=== PATIENT | female | born 1940 | race Caucasian/White ===

== ENCOUNTER 2020-11-24 09:38 | Emergency (ER) | payer MEDICARE ==
[~2020-11-24] VITALS: Ht 172.7 cm; Wt 72.6 kg
[~2020-11-24 09:38] MED LIST: ACYCLOVIR200 MG PO; ALIGN; ALIGN10.5 MG PO; ALIGN4 MG PO; AMBIEN10 MG PO; ASPIR 8181 MG PO; ATIVAN1 MG PO; ATORVASTATIN CA10 MG PO; BENZONATATE200 MG PO; CLOTRIMAZOLE-BE15 GM TOP; CRESTOR10 MG PO; DOCUSATE SENNA PO; FLOMAX0.4 MG PO; GARLIC PO; HYDROCODON-ACE1 EA11 PO; IPRATROPIUM BRO15 ML; LEXAPRO5 MG PO; LIPITOR10 MG PO; METAMUCIL; METAMUCIL660 GM PO; METOPROLOL SUCC25 MG PO; MULTI-VITAMIN1 EACH PO; NEURONTIN300 MG PO; NEXIUM40 MG PO; PANTOPRAZOLE SO40 MG PO; PRIMIDONE250 MG PO; PRIMIDONE50 MG PO; RANITIDINE HCL300 M1 PO; SINEMET 25-1001 EACH PO; SYSTANE 0.3-0.415 ML OP/OT; SYSTANE NIGHTT3.5 GM OP/OT; VIACTIV MULTI-1 EACH; VIT E PO
[2020-11-24] MEDS ORDERED: HYDROCODONE/APAP 5MG-325MG TAB PO ONE (10:15)
[2020-11-24 12:21] VITALS: BP 113/50
[2020-11-24] MEDS ORDERED: HYDROCODON-ACE1 EA11 PO (12:21)
== END 2020-11-24 12:42 | disposition home or self-care (01) ==
LOC: ER 10:15
DX: S42.291A Other displaced fracture of upper end of right humerus, initial encounter for closed fracture (principal); S00.83XA Contusion of other part of head, initial encounter; W01.0XXA Fall on same level from slipping, tripping and stumbling without subsequent striking against object, initial encounter; Y93.01 Activity, walking, marching and hiking; E78.00 Pure hypercholesterolemia, unspecified; Z85.3 Personal history of malignant neoplasm of breast
CPT/HCPCS: 70450; 70486; 71045; 72125; 99283

== ENCOUNTER → 2020-12-07 | Outpatient (CLI) | payer MEDICARE ==
[~2020-12-07] MED LIST changes: +ATIVAN0.5 MG PO; +CENTRUM SILVER1 EAC4 PO; +DULCOLAX STOOL100 MG PO; +REGADENOSON 0.4 MG/5 ML SYR IV ONE; +SODIUM CHLORIDE1 GM PO; +VELTASSA8.4 GM PO; +ZOVIRAX200 MG/5 M PO
== END ==
LOC: NM 15:12
PROVIDERS: ATTEND Internal Medicine Interventional Cardiology
DX: I49.3 Ventricular premature depolarization (principal)
CPT/HCPCS: 78452; 93017; A9502; J2785

== ENCOUNTER 2020-12-08 07:46 | Observation (INO) | payer MEDICARE ==
[2020-12-03 13:41] LABS: BASOPHILS % 0.3 % (0.0-1.0); EOSINOPHILS # (AUTO) 0.1 (0.0-0.4); EOSINOPHILS % 0.7 % (0.0-6.0); HEMATOCRIT 33.2 % (34.2-44.1); HEMOGLOBIN 10.7 g/dL (12.0-16.0); LYMPHOCYTES # (AUTO) 1.8 (1.0-3.2); LYMPHOCYTES % 19.1 % (18.0-39.1); MEAN CORPUSCULAR HEMOGLOBIN 31.8 pg (28-32); MEAN CORPUSCULAR HGB CONC 32.2 g/dL (31-35); MEAN CORPUSCULAR VOLUME 98.5 fL (81-99); MONOCYTES # (AUTO) 0.4 (0.2-0.8); MONOCYTES % 4.4 % (4.4-11.3); NEUTROPHILS # (AUTO) 7.2 (2.1-6.9); NEUTROPHILS % 75.1 % (38.7-80.0); PLATELET COUNT 301 x10e3/uL (140-360); RED BLOOD COUNT 3.37 x10e6/uL (3.6-5.1); RED CELL DISTRIBUTION WIDTH 13.2 % (11.7-14.4)
[2020-12-03 13:51] LABS: INR 0.96; PROTHROMBIN TIME 13.3 seconds (11.9-14.5)
[2020-12-03 13:52] LABS: PARTIAL THROMBOPLASTIN TIME 29.5 seconds (23.8-35.5)
[2020-12-03 13:58] LABS: ANION GAP 12.8 mmol/L (8-16); BLOOD UREA NITROGEN 9 mg/dL (7-26); BUN/CREATININE RATIO 12 (6-25); CALCIUM 9.2 mg/dL (8.4-10.2); CARBON DIOXIDE 29 mmol/L (22-29); CHLORIDE 101 mmol/L (98-107); CREATININE, SERUM 0.73 mg/dL (0.57-1.11); EST GLOMERULAR FILTRATION RATE > 60 ML/MIN (60-); GLUCOSE 139 mg/dL (74-118); POTASSIUM 5.8 mmol/L (3.5-5.1); SODIUM 137 mmol/L (136-145)
[~2020-12-08] VITALS: Ht 172.7 cm; Wt 72.6 kg
[~2020-12-08 07:46] MED LIST changes: -ATIVAN0.5 MG PO; -REGADENOSON 0.4 MG/5 ML SYR IV ONE; -ZOVIRAX200 MG/5 M PO
[2020-12-08] MEDS ORDERED: CEFAZOLIN SOD 1 GM/NS 50ML 50 ML IV ONE (08:15)
[2020-12-08] MEDS ORDERED: KETOROLAC TROMETHAMINE 30 MG/ML VIAL IV PRN (11:15)
[2020-12-08] MEDS ORDERED: HYDROCODONE/APAP 5MG-325MG TAB PO PRN (11:15)
[2020-12-08] MEDS ORDERED: ONDANSETRON HCL INJ 2MG/ML 2ML 2 MG/ML VIAL IV PRN (11:15)
[2020-12-08] MEDS ORDERED: ACETAMINOPHEN 650 MG SUPP PR PRN (11:15)
[2020-12-08] MEDS ORDERED: DIPHENHYDRAMINE HCL INJ 50 MG/ML VIAL IV PRN (11:15)
[2020-12-08] MEDS: HYDROMORPHONE 1MG/1ML INJ ONE ×2 (11:43→15:11)
[2020-12-08] MEDS: MORPHINE SULFATE INJ 4 MG/ML INJ 1ML ONE ×2 (12:21→15:12)
[2020-12-08] MEDS: MIDAZOLAM HCL 2 MG/2 ML VIAL ONE ×2 (12:58→15:12)
[2020-12-08] MEDS ORDERED: FENTANYL CITRATE/PF 100MCG/2 ML INJ ONE (13:10)
[2020-12-08] MEDS ORDERED: MIDAZOLAM HCL 2 MG/2 ML VIAL ONE (13:10)
[2020-12-08] MEDS ORDERED: ROCURONIUM BROMIDE 10 MG/ML 5ML VIAL IV ONE (13:43)
[2020-12-08] MEDS ORDERED: SEVOFLURANE INHAL SOLN 250 ML PEN BTL ONE (13:43)
[2020-12-08] MEDS ORDERED: PROPOFOL IV EMULSION 10 MG/ML 20 ML VIAL ONE (13:43)
[2020-12-08] MEDS ORDERED: LIDOCAINE HCL 2% LOCAL INJ 5 ML SDV VIAL INJ ONE (13:43)
[2020-12-08] MEDS ORDERED: ONDANSETRON HCL INJ 2MG/ML 2ML 2 MG/ML VIAL ONE (13:43)
[2020-12-08] MEDS ORDERED: DEXAMETHASONE SOD PHOS INJ 4 MG/ML VIAL ONE (13:43)
[2020-12-08 14:56] VITALS: BP 154/66
[2020-12-08 15:00] VITALS: BP 154/66
[2020-12-08] MEDS ORDERED: ACETAMINOPHEN 1000 MG/100 ML IV PRN (15:00)
[2020-12-08] MEDS: HYDROCODONE/APAP 7.5MG-325MG 1 EA TAB PO PRN ×2 (15:11→21:25)
[2020-12-08] MEDS ORDERED: ATIVAN0.5 MG PO (15:57)
[2020-12-08] MEDS ORDERED: ZOVIRAX200 MG/5 M PO (15:57)
[2020-12-08] MEDS ORDERED: LORAZEPAM 0.5 MG TAB PO PRN (16:30)
[2020-12-08] MEDS ORDERED: SODIUM CHLORIDE 0.9% 250ML 250 ML ONE (17:17)
[2020-12-08 17:58] VITALS: BP 154/66
[2020-12-08] MEDS: CELECOXIB 100 MG CAP PO SCH (18:00)
[2020-12-08] MEDS: ASPIRIN 325 MG TAB PO SCH (18:00)
[2020-12-08] MEDS: PRIMIDONE 50 MG TAB PO SCH (18:00)
[2020-12-08] MEDS: CEFAZOLIN SOD 1 GM/NS 50ML 50 ML IV SCH (18:31)
[2020-12-08] MEDS ORDERED: LIDOCAINE 2%/ EPINEPHRINE 20ML MDV ONE (19:28)
[2020-12-08] MEDS ORDERED: ROPIVACAINE 0.5% 5 MG/ML 30 ML SDV ONE (19:28)
[2020-12-08 20:00] VITALS: BP 116/45
[2020-12-08 20:32] VITALS: BP 116/45
[2020-12-08] MEDS ORDERED: ZOLPIDEM TARTRATE 10 MG TAB PO SCH (21:00)
[2020-12-08] MEDS ORDERED: METOPROLOL SUCCINATE 25 MG TAB XL PO SCH (21:00)
[2020-12-08] MEDS ORDERED: ZOLPIDEM TARTRATE 5 MG TAB PO PRN (21:00)
[2020-12-08] MEDS ORDERED: TAMSULOSIN HCL 0.4 MG CAP PO SCH (21:00)
[2020-12-08] MEDS: DOCUSATE SODIUM 100 MG CAP PO PRN (21:25)
[2020-12-08] MEDS: GABAPENTIN 300 MG CAP PO SCH (21:25)
[2020-12-08] MEDS ORDERED: PANTOPRAZOLE SOD 40 MG TABEC PO SCH (22:53)
[2020-12-09] VITALS: BP 112/57
[2020-12-09] MEDS: CEFAZOLIN SOD 1 GM/NS 50ML 50 ML IV SCH ×2 (01:54→09:48)
[2020-12-09 04:00] VITALS: BP 122/54
[2020-12-09] MEDS: HYDROCODONE/APAP 7.5MG-325MG 1 EA TAB PO PRN ×2 (05:00→09:48)
[2020-12-09 06:07] LABS: HEMATOCRIT 31.8 % (34.2-44.1); HEMOGLOBIN 10.4 g/dL (12.0-16.0)
[2020-12-09 07:20] VITALS: BP 119/55
[2020-12-09] MEDS ORDERED: PANTOPRAZOLE SOD 40 MG TABEC PO SCH ×2 (07:30→09:00)
[2020-12-09 08:05] VITALS: BP 119/55
[2020-12-09] MEDS: CELECOXIB 100 MG CAP PO SCH (08:07)
[2020-12-09] MEDS: GABAPENTIN 300 MG CAP PO SCH (08:07)
[2020-12-09] MEDS: ASPIRIN 325 MG TAB PO SCH (08:07)
[2020-12-09] MEDS: DOCUSATE SODIUM 100 MG CAP PO PRN (08:07)
[2020-12-09] MEDS: PRIMIDONE 50 MG TAB PO SCH (08:12)
[2020-12-09] MEDS ORDERED: ONDANSETRON HCL 4 MG ORAL DISINTEGRATING TAB PO PRN (08:30)
[2020-12-09] MEDS ORDERED: TAMSULOSIN HCL 0.4 MG CAP PO SCH (09:00)
[2020-12-09] MEDS ORDERED: SIMVASTATIN 40 MG TAB PO SCH (21:00)
== END 2020-12-09 11:00 | disposition home or self-care (01) ==
LOC: OR 07:46 → PACU V 11:11 → MED/SURG 14:37
PROVIDERS: ADMIT Specialist; ATTEND Specialist
DX: S42.291A Other displaced fracture of upper end of right humerus, initial encounter for closed fracture (principal); I12.9 Hypertensive chronic kidney disease with stage 1 through stage 4 chronic kidney disease, or unspecified chronic kidney disease; N18.2 Chronic kidney disease, stage 2 (mild); Z01.810 Encounter for preprocedural cardiovascular examination; Z01.812 Encounter for preprocedural laboratory examination; Z01.818 Encounter for other preprocedural examination; Z20.822 Contact with and (suspected) exposure to COVID-19; Z88.7 Allergy status to serum and vaccine; Z88.8 Allergy status to other drugs, medicaments and biological substances; I25.10 Atherosclerotic heart disease of native coronary artery without angina pectoris; K21.9 Gastro-esophageal reflux disease without esophagitis
CPT/HCPCS: 23680; 36415 ×3; 76000; 80048; 84132; 85014; 85018; 85025; 85610; 85730; 93005; 97116; 97162; 97530; C1713 ×8; G0378 ×2; J0131; J0690 ×2; J1100; J1170; J1885; J2001 ×2; J2250; J2270; J2405; J2704; J2795; J3010; J7050; S0164 ×2; U0002

== ENCOUNTER 2024-11-11 11:53 | Emergency (ER) | payer MEDICARE ==
[~2024-11-11] VITALS: Ht 172.7 cm; Wt 70.3 kg
[~2024-11-11 11:53] MED LIST changes: +ATIVAN0.5 MG PO; +ZOVIRAX200 MG/5 M PO
[2024-11-11 15:50] VITALS: PULSE 80; RESP 16; TEMP 98
[2024-11-11 16:01] VITALS: BP 168/75; PULSE 80; RESP 16; TEMP 98; O2SAT 99
== END 2024-11-11 16:04 | disposition home or self-care (01) ==
LOC: ER 12:18
DX: S00.83XA Contusion of other part of head, initial encounter (principal); W01.0XXA Fall on same level from slipping, tripping and stumbling without subsequent striking against object, initial encounter; Y93.01 Activity, walking, marching and hiking; Y92.89 Other specified places as the place of occurrence of the external cause; I10 Essential (primary) hypertension; I25.10 Atherosclerotic heart disease of native coronary artery without angina pectoris; E78.00 Pure hypercholesterolemia, unspecified; K21.9 Gastro-esophageal reflux disease without esophagitis; F41.9 Anxiety disorder, unspecified; I25.2 Old myocardial infarction; Z85.3 Personal history of malignant neoplasm of breast; Z96.641 Presence of right artificial hip joint
CPT/HCPCS: 70450; 70486; 72125; 99284